=== PATIENT | male | born 1995 | race Two or more races ===

== ENCOUNTER 2017-04-19 13:29 | Emergency (ER) | payer BC ==
[~2017-04-19] VITALS: Ht 175.3 cm; Wt 65.8 kg
[2017-04-19] MEDS ORDERED: DIPHTH,PERTUSS(ACELL),TET TOX 0.5 ML DISP.SYRIN. VAX IM ONE (14:00)
[2017-04-19] MEDS ORDERED: oxyCODONE/APAP 5/325 1 TAB TABLET PO ONE (14:00)
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
[2017-04-19] MEDS ORDERED: CEPH-264 PO (15:05)
[2017-04-19] MEDS ORDERED: HYDR-971 PO (15:05)
[2017-04-19 15:15] VITALS: BP 119/58
== END 2017-04-19 15:26 | disposition home or self-care (01) ==
LOC: ER 13:29
DX: S02.2XXA Fracture of nasal bones, initial encounter for closed fracture (principal); S01.21XA Laceration without foreign body of nose, initial encounter; S20.419A Abrasion of unspecified back wall of thorax, initial encounter; S20.319A Abrasion of unspecified front wall of thorax, initial encounter; J45.909 Unspecified asthma, uncomplicated; V86.59XA Driver of other special all-terrain or other off-road motor vehicle injured in nontraffic accident, initial encounter; Y93.I9 Activity, other involving external motion; Y92.410 Unspecified street and highway as the place of occurrence of the external cause; Y99.8 Other external cause status
CPT/HCPCS: 12011; 70450; 70486; 72125; 90471; 90715; 99284-25